=== PATIENT | female | born 1970 | race Caucasian/White ===

== ENCOUNTER → 2016-09-19 | Outpatient (CLI) | payer BC ==
--- NOTE | 2016-09-19 14:39 | DI ---
Indication: ITS.REASON: R10.9 ABDOMINAL PAIN PROCEDURE: CT RENAL W/O CONTRAST: Encounter: Initial Comparison: None Technique: Axial CT images were performed through the abdomen and pelvis without intravenous contrast. Coronal and sagittal two-dimensional reformats. Automated Exposure Control and Iterative Reconstruction dose reducing techniques were utilized. Findings: The lung bases are clear. The unenhanced contours of the liver are grossly normal. The gallbladder is normal. The spleen, pancreas and adrenal glands are within normal limits. The kidneys are normal. No renal stone disease. Ureters are difficult to follow without evidence of definite ureteral stone. Bladder is normal. Uterus and ovaries appear normal. No free fluid or evidence of a bowel obstruction. Moderate stool throughout the colon. The appendix is not seen and reportedly surgically absent. Bone windows show mild degenerative change and scoliosis in the spine. Impression: No acute disease process seen. No clear etiology for the patient's symptoms. .
== END ==
LOC: IMA 14:03
PROVIDERS: ATTEND Family Medicine
DX: R10.12 Left upper quadrant pain (principal)